=== PATIENT | female | born 1985 | race Caucasian/White ===

== ENCOUNTER 2020-01-18 18:53 | Emergency (ER) | payer MEDICAID ==
[~2020-01-18] VITALS: Ht 167.6 cm; Wt 75.7 kg
[2020-01-18 18:55] VITALS: Ht 167.6 cm; Wt 75.7 kg
[2020-01-18 19:47] LABS: BASOPHIL % 0.3 % (0-2); PLATELET COUNT 259 x10^3mcL (130-400); RED CELL DISTRIBUTION WIDTH 13.4 % (11.5-14.5)
[2020-01-18 20:39] LABS: CALCIUM 8.6 mg/dL (8.5-10.1); CARBON DIOXIDE 26.5 mmol/L (21-32); CHLORIDE SERUM 106 mmol/L (98-107); CREATININE SERUM 0.6 mg/dL (0.6-1.0); GFR1 > 60 mL/min; GLUCOSE SERUM 105 mg/dL (74-106); POTASSIUM SERUM 4.1 mmol/L (3.5-5.1); SODIUM SERUM 138 mmol/L (136-145)
[2020-01-18 20:44] LABS: ALBUMIN 3.5 g/dL (3.4-5.0); ALKALINE PHOSPHATASE 69 U/L (46-116); ALT/SGPT 27 U/L (14-59); AST/SGOT 14 U/L (15-37); BILIRUBIN TOTAL 0.15 mg/dL (0.20-1.00); LIPASE 313 IU/L (73-393); TOTAL PROTEIN, SERUM 7.1 g/dL (6.4-8.2)
[2020-01-18 21:28] VITALS: BP 144/94
== END 2020-01-18 21:28 | disposition home or self-care (01) ==
LOC: ED 18:53
PROVIDERS: Emergency Medicine
DX: K29.70 Gastritis, unspecified, without bleeding (principal)
CPT/HCPCS: 36415; Q0092